=== PATIENT | female | born 1990 | race Caucasian/White ===

== ENCOUNTER 2017-10-10 18:32 | Emergency (ER) | payer MEDICAID, OTHER ==
[2017-10-10 18:32] VITALS: BMI 32.5
[2017-10-10] MEDS ORDERED: Sodium Chloride 0.9% 1,000 ML IV ONE (19:10)
--- NOTE | 2017-10-10 19:23 | C.PDOC ---
History Of Present Illness 27 y/o female presents to ED with complaints of intermittent vaginal bleeding that began 2 months ago. Patient states symptoms occurred after taking Plan B, and she has not seen anyone since then. Denies any other physical complaints. Time Seen by Provider: 10/10/17 19:01 Chief Complaint (Nursing): Female Genitourinary History Per: Patient History/Exam Limitations: no limitations Onset/Duration Of Symptoms: Days (60) Current Symptoms Are (Timing): Still Present Recent travel outside of the [place]: No Past Medical History Reviewed: Historical Data, Nursing Documentation, Vital Signs Vital Signs: Last Vital Signs Temp 98.4 F 10/10/17 22:46 Pulse 67 10/10/17 22:46 Resp 20 10/10/17 22:46 BP 126/83 10/10/17 22:46 Pulse Ox 98 10/10/17 22:46 - Medical History PMH: Back Problems - [facility] Procedures DELIVERY OF PRODUCTS OF CONCEPTION, EXTERNAL APPROACH (08/08/16) EXTIRPATION OF MATTER FROM UTERUS, VIA OPENING (08/08/16) REPAIR PERINEUM MUSCLE, OPEN APPROACH (08/08/16) Family History: States: Unknown Family Hx - Social History Hx Tobacco Use: No Hx Alcohol Use: No Hx Substance Use: No - Immunization History Hx Tetanus Toxoid Vaccination: No Hx Influenza Vaccination: Yes Hx Pneumococcal Vaccination: No Review Of Systems Constitutional: Negative for: Fever, Chills Gastrointestinal: Negative for: Nausea, Vomiting, Abdominal Pain, Diarrhea Genitourinary: Positive for: Vaginal Bleeding (intermittent). Negative for: Dysuria Neurological: Negative for: Weakness, Numbness Physical Exam - Physical Exam Appears: Well, Non-toxic, No Acute Distress Skin: Normal Color, Warm, Dry Head: Atraumatic, Normacephalic Eye(s): bilateral: Normal Inspection Oral Mucosa: Moist Neck: Supple Chest: Symmetrical, No Tenderness Cardiovascular: Rhythm Regular Respiratory: Normal Breath Sounds, No Decreased Breath Sounds, No Rales, No Rhonchi, No Wheezing Gastrointestinal/Abdominal: Soft, Tenderness (Suprapubic) Neurological/Psych: Oriented x3, Normal Speech, Normal Cognition ED Course And Treatment - Laboratory Results Result Diagrams: 10/10/17 19:26 10/10/17 19:26 O2 Sat by Pulse Oximetry: 100 (RA) Pulse Ox Interpretation: Normal - CT Scan/US Transvaginal US Other Rad Studies (CT/US): Read By Radiologist, Radiology Report Reviewed CT/US Interpretation: EXAM: US Pelvis Complete, Transabdominal. US Pelvis, Transvaginal. US Duplex Arterial/Venous of the Pelvis, Complete. EXAM DATE/ TIME: 10/10/2017 7:10 PM. CLINICAL HISTORY: 27 years old, female; Signs and symptoms; Other: Vag bleed; Additional info: Vag bleeding since. LMP on 08/06/17 ; negative urine test. TECHNIQUE: Real-time transabdominal and transvaginal pelvic ultrasound (complete) with image documentation. Transvaginal imaging was used for better evaluation of the endometrium and adnexa. Real-time. duplex ultrasound scan of the arterial and venous flow of the pelvis with color Doppler flow and. spectral waveform analysis. COMPARISON : PELVIS/TRANSVAG US 2015-09-28 18:56. FINDINGS: Uterus: Uterus is retroflexed. The uterus measures approximate 7.6 x 4.3 x 5.3 cm. Endometrium. measures approximately 3 mm in width. There are small endometrial calcifications. Right ovary: Right ovary measures approximately 3.9 x 1.6 x 3.2 cm.There are multiple small. follicles. There is intraovarian blood flow. Left ovary: Left ovary measures approximately 4.1 x 1.9 x 2.5 cm.There are multiple small follicles. There is intraovarian blood flow. [facility]. [facility] Radiology [facility]. Final Radiology Report [id number]. Name: WILFREDO WILLARD Age: 27Years F Date: 10/10/2017. SSN: [id number] : . Study: US PELVIS COMP NON-OB Requesting Physician: Maurice Florence. Images: 84. Addl Studies: [id number] - US TRANSVAGINAL NON-OB (1). Provided Clinical History: vag bleeding. CONFIDENTIALITY STATEMENT. This transmission is confidential and is intended to be a privileged communication. It is intended only for the use of the addressee. Access to this. message by anyone else is unauthorized. If you are not the intended recipient, any disclosure, copying, distribution or any action taken, or omitted to. be taken in reliance on it is prohibited and may be unlawful. If you received this communication in error, please notify us by telephone, so that return. of this document to us can be arranged. Page 2 of 2. Free fluid: There is fluid in the cul-de-sac. Bladder: Bladder is incompletely distended. IMPRESSION: Free fluid in the cul-de-sac, physiologic versus recent cyst rupture, study is otherwise unremarkable Medical Decision Making Medical Decision Making: ro anemia- labs imagin gpendign Odered blood work, urinalysis and Transvaginal US. Administered IV fluids and Tylenol. pt reassesed abd soft no e/o of anemia. us neg. pt asking for dc advise outpt fu and return precautions Disposition - Disposition Referrals: [facility] [Outside] [facility] [Outside] [facility] [Outside] Disposition: HOME/ ROUTINE Disposition Time: 23:46 Condition: STABLE Additional Instructions: please follow up with your doctor. return to er with worsening symptoms or concerns. Instructions: Ovarian Cysts, Heavy Periods Forms: [employer] (Armenian) - Clinical Impression Clinical Impression: Vaginal bleeding - Scribe Statement The provider has reviewed the documentation as recorded by the Scribe Eliazar Acevedo All medical record entries made by the Scribe were at my direction and personally dictated by me. I have reviewed the chart and agree that the record accurately reflects my personal performance of the history, physical exam, medical decision making, and the department course for this patient. I have also personally directed, reviewed, and agree with the discharge instructions and disposition.
[2017-10-10 19:29] LABS: BASO # 0.1 K/uL (0.0-0.2); BASO % 0.9 % (0.0-2.0); EOS # 0.7 K/uL (0.0-0.7); EOS % 7.7 % (0.0-4.0); LYMPH # 2.6 K/uL (1.0-4.3); LYMPH % 30.3 % (20.0-40.0); MEAN CORPUSCULAR HGB CONC 34.6 g/dL (33.0-37.0); MEAN PLATELET VOLUME 8.6 fL (7.2-11.7); MONO # 0.6 K/uL (0.0-0.8); MONO % 7.4 % (0.0-10.0); NEUT # 4.7 K/uL (1.8-7.0); NEUT % 53.7 % (50.0-75.0); RBC 3.52 Mil/uL (3.80-5.20); RED CELL DISTRIBUTION WIDTH 14.1 % (11.5-14.5); WHITE BLOOD COUNT 8.7 K/uL (4.8-10.8)
[2017-10-10 19:30] LABS: HEMOGLOBIN 12.7 g/dL (11.0-16.0); MEAN CELL VOLUME 104.1 fL (81.0-99.0)
[2017-10-10 19:33] LABS: SQUAMOUS EPITHIAL 4 /hpf (0-5); URINE BILIRUBIN NEGATIVE (NEGATIVE); URINE BLOOD 3+ (NEGATIVE); URINE CLARITY Hazy (Clear); URINE COLOR Yellow (YELLOW); URINE GLUCOSE (UA) NORMAL (Normal); URINE LEUKOCYTE ESTERASE 1+ Leu/uL (Negative); URINE PROTEIN 1+ mg/dL (NEGATIVE); URINE UROBILINOGEN NORMAL mg/dL (0.2-1.0)
[2017-10-10 19:35] LABS: HCG,QUALITATIVE URINE NEGATIVE (NEGATIVE)
[2017-10-10 19:42] LABS: ALB/GLOB RATIO 1.3 (1.0-2.1); ALBUMIN 4.2 g/dL (3.5-5.0); ALT/SGPT 23 U/L (9-52); AST/SGOT 19 U/L (14-36); BLOOD UREA NITROGEN 14 mg/dL (7-17); CALCIUM 8.5 mg/dl (8.6-10.4); GFR AFRICAN-AMERICAN > 60; GFR NON-AFRICAN AMERICAN > 60; LIPASE 52 U/L (23-300)
--- NOTE | 2017-10-10 22:32 | US ---
EXAM: US Pelvis Complete, Transabdominal US Pelvis, Transvaginal US Duplex Arterial/Venous of the Pelvis, Complete EXAM DATE/TIME: 10/10/2017 7:10 PM CLINICAL HISTORY: 27 years old, female; Signs and symptoms; Other: Vag bleed; Additional info: Vag bleeding since LMP on 08/06/17; negative urine test TECHNIQUE: Real-time transabdominal and transvaginal pelvic ultrasound (complete) with image documentation. Transvaginal imaging was used for better evaluation of the endometrium and adnexa. Real-time duplex ultrasound scan of the arterial and venous flow of the pelvis with color Doppler flow and spectral waveform analysis. COMPARISON: PELVIS/TRANSVAG US 2015-09-28 18:56 FINDINGS: Uterus: Uterus is retroflexed. The uterus measures approximate 7.6 x 4.3 x 5.3 cm. Endometrium measures approximately 3 mm in width. There are small endometrial calcifications. Right ovary: Right ovary measures approximately 3.9 x 1.6 x 3.2 cm.There are multiple small follicles. There is intraovarian blood flow. Left ovary: Left ovary measures approximately 4.1 x 1.9 x 2.5 cm.There are multiple small follicles. There is intraovarian blood flow. Free fluid: There is fluid in the cul-de-sac. Bladder: Bladder is incompletely distended. IMPRESSION: Free fluid in the cul-de-sac, physiologic versus recent cyst rupture, study is otherwise unremarkable
[2017-10-10 22:47] VITALS: BP 126/83; PULSE 67; RESP 20; TEMP 98.4
[2017-10-10 23:46] VITALS: O2SAT 100
== END 2017-10-10 23:00 | disposition home or self-care (01) ==
LOC: C.ER 18:32
DX: N93.9 Abnormal uterine and vaginal bleeding, unspecified (principal)
CPT/HCPCS: 76830; 76856; 80053; 81001; 83690; 84703; 85025; 96360; 99285; J7040